=== PATIENT | female | born 1990 | race Caucasian/White ===

== ENCOUNTER 2018-03-24 20:47 | Outpatient (CLI) | payer MEDICAID ==
[2018-03-24 22:08] LABS: ADD MAN DIFF? NO
[2018-03-24 22:10] LABS: WHITE BLOOD COUNT 12.6 10^3/ul (4.8-10.8)
[2018-03-24 22:10] LABS: BASOPHILS % 0.2 % (0.0-2.0); EOSINOPHILS # 0.2 10^3/ul (0.0-0.5); EOSINOPHILS % 1.3 % (0.0-7.0); HEMATOCRIT 34.4 % (37.0-47.0); HEMOGLOBIN 11.8 g/dl (12.0-16.0); LYMPHOCYTES # 2.8 10^3/ul (0.8-2.9); LYMPHOCYTES % 22.2 % (15.0-51.0); MEAN CORPUSCULAR HGB CONC 34.3 g/dl (32.0-37.0); MEAN CORPUSCULAR VOLUME 87.5 fl (82.0-101.0); MEAN PLATELET VOLUME 10.9 fl (7.4-10.4); MONOCYTE # 0.7 10^3/ul (0.3-0.9); MONOCYTES % 5.8 % (0.0-11.0); NEUTROPHIL # 8.7 10^3/ul (1.6-7.5); NEUTROPHILS % 68.9 % (39.0-77.0); PLATELET COUNT 268 10^3/UL (140-415); RED BLOOD COUNT 3.93 10^6/ul (4.20-5.40); RED CELL DISTRIBUTION WIDTH 12.4 % (11.5-14.5)
[2018-03-24 22:23] LABS: ADD UMIC NO; UR ASCORBIC ACID NEGATIVE (NEGATIVE); UR BILIRUBIN (Dip) NEGATIVE (NEGATIVE); UR BLOOD (Dip) NEGATIVE (NEGATIVE); UR CLARITY CLEAR (CLEAR); UR COLOR YELLOW (YELLOW); UR GLUCOSE (Dip) 3+ mg/dL (NEGATIVE); UR KETONES (Dip) 1+ mg/dL (NEGATIVE); UR LEUKOCYTE ESTERASE (Dip) NEGATIVE Leu/ul (NEGATIVE); UR NITRITE (Dip) NEGATIVE (NEGATIVE); UR SPECIFIC GRAVITY (Dip) 1.033 (1.003-1.030); UR TOTAL PROTEIN (Dip) NEGATIVE (NEGATIVE); UR UROBILINOGEN (Dip) NEGATIVE (NEGATIVE)
[2018-03-24 22:28] LABS: ALANINE AMINOTRANSFERASE 18 IU/L (13-69); ALBUMIN 3.2 g/dl (3.3-4.9); ALKALINE PHOSPHATASE 75 IU/L (42-121); ANION GAP 11 (8-16); ASPARTATE AMINO TRANSFERASE 12 IU/L (15-46); BILIRUBIN,INDIRECT 0.2 mg/dl (0-1.1); BILIRUBIN,TOTAL 0.2 mg/dl (0.2-1.3); BLOOD UREA NITROGEN 8 mg/dl (7-20); CALCIUM 9.2 mg/dl (8.4-10.2); CARBON DIOXIDE 22 mmol/L (21-31); CHLORIDE 101 mmol/L (97-110); CREATININE 0.45 mg/dl (0.44-1.00); GLUCOSE 315 mg/dl (70-220); POTASSIUM 4.1 mmol/L (3.5-5.1); SODIUM 130 mmol/L (135-144); TOTAL PROTEIN 6.4 g/dl (6.1-8.1)
[2018-03-25] MEDS ORDERED: INSULIN LISPRO 100 UNIT/ML VIAL SC (01:30)
[2018-03-25] MEDS: INSULIN ASPART [NOVOLOG] 3 ML PEN SC (03:00)
[2018-03-25] MEDS: ONDANSETRON 4 MG TAB PO (03:22)
== END 2018-03-25 04:35 | disposition left against medical advice (07) ==
LOC: OBT 20:47 → L-D 20:49
DX: O24.414 Gestational diabetes mellitus in pregnancy, insulin controlled (principal); O26.892 Other specified pregnancy related conditions, second trimester; R10.9 Unspecified abdominal pain; R19.7 Diarrhea, unspecified; O21.9 Vomiting of pregnancy, unspecified; Z3A.21 21 weeks gestation of pregnancy
CPT/HCPCS: 36415; 76815; 76817; 80053; 81003; 82962; 85025; 87086; 96372

== ENCOUNTER 2018-05-06 15:33 | Outpatient (CLI) | payer MEDICAID ==
[2018-05-06 17:13] LABS: ALANINE AMINOTRANSFERASE 20 IU/L (13-69); ALBUMIN 3.1 g/dl (3.3-4.9); ALBUMIN/GLOBULIN RATIO 0.88; ALKALINE PHOSPHATASE 88 IU/L (42-121); ANION GAP 12 (8-16); ASPARTATE AMINO TRANSFERASE 13 IU/L (15-46); BILIRUBIN,INDIRECT 0.2 mg/dl (0-1.1); BILIRUBIN,TOTAL 0.2 mg/dl (0.2-1.3); BLOOD UREA NITROGEN 7 mg/dl (7-20); CALCIUM 8.9 mg/dl (8.4-10.2); CARBON DIOXIDE 22 mmol/L (21-31); CHLORIDE 105 mmol/L (97-110); CREATININE 0.34 mg/dl (0.44-1.00); GLUCOSE 187 mg/dl (70-220); POTASSIUM 3.6 mmol/L (3.5-5.1); SODIUM 135 mmol/L (135-144); TOTAL PROTEIN 6.6 g/dl (6.1-8.1)
[2018-05-06 19:31] LABS: ADD UMIC NO; UR AMORPHOUS CRYSTAL MODERATE /HPF (NONE SEEN); UR ASCORBIC ACID NEGATIVE (NEGATIVE); UR BACTERIA FEW /HPF (NONE SEEN); UR BILIRUBIN (Dip) NEGATIVE (NEGATIVE); UR BLOOD (Dip) NEGATIVE (NEGATIVE); UR CLARITY SLIGHTLY CLOUDY (CLEAR); UR COLOR YELLOW (YELLOW); UR GLUCOSE (Dip) 3+ mg/dL (NEGATIVE); UR KETONES (Dip) TRACE mg/dL (NEGATIVE); UR LEUKOCYTE ESTERASE (Dip) NEGATIVE Leu/ul (NEGATIVE); UR MUCUS FEW /HPF (NONE SEEN); UR NITRITE (Dip) NEGATIVE (NEGATIVE); UR RBC 0 /HPF (0-5); UR SPECIFIC GRAVITY (Dip) 1.017 (1.003-1.030); UR SQUAMOUS EPITHELIAL CELL FEW /HPF (FEW); UR TOTAL PROTEIN (Dip) NEGATIVE (NEGATIVE); UR UROBILINOGEN (Dip) NEGATIVE (NEGATIVE); UR WBC 2 /HPF (0-5)
== END 2018-05-06 21:00 | disposition home or self-care (01) ==
LOC: OBT 15:33 → L-D 15:34 → OBT 21:00
DX: O26.892 Other specified pregnancy related conditions, second trimester (principal); O24.414 Gestational diabetes mellitus in pregnancy, insulin controlled; Z3A.26 26 weeks gestation of pregnancy
CPT/HCPCS: 76705; 80053; 81001; 81003

== ENCOUNTER 2018-06-15 07:37 | Outpatient (CLI) | payer MEDICAID ==
[2018-06-15] MEDS: LACTATED RINGER'S 1,000 ML IV (08:59)
[2018-06-15 09:00] LABS: ADD MAN DIFF? NO
[2018-06-15 09:04] LABS: BASOPHILS % 0.4 % (0.0-2.0); EOSINOPHILS # 0.1 10^3/ul (0.0-0.5); EOSINOPHILS % 1.2 % (0.0-7.0); HEMATOCRIT 35.2 % (37.0-47.0); HEMOGLOBIN 11.9 g/dl (12.0-16.0); LYMPHOCYTES # 2.9 10^3/ul (0.8-2.9); MEAN CORPUSCULAR HEMOGLOBIN 28.1 pg (29.0-33.0); MEAN CORPUSCULAR HGB CONC 33.8 g/dl (32.0-37.0); MEAN PLATELET VOLUME 12.4 fl (7.4-10.4); MONOCYTE # 0.8 10^3/ul (0.3-0.9); MONOCYTES % 7.7 % (0.0-11.0); NEUTROPHIL # 6.9 10^3/ul (1.6-7.5); NEUTROPHILS % 62.8 % (39.0-77.0); PLATELET COUNT 246 10^3/UL (140-415); RED BLOOD COUNT 4.24 10^6/ul (4.20-5.40); RED CELL DISTRIBUTION WIDTH 12.6 % (11.5-14.5)
[2018-06-15 09:04] LABS: WHITE BLOOD COUNT 10.9 10^3/ul (4.8-10.8)
[2018-06-15 09:06] LABS: ADD UMIC NO; UR ASCORBIC ACID NEGATIVE (NEGATIVE); UR BILIRUBIN (Dip) NEGATIVE (NEGATIVE); UR BLOOD (Dip) NEGATIVE (NEGATIVE); UR CLARITY CLEAR (CLEAR); UR COLOR YELLOW (YELLOW); UR GLUCOSE (Dip) NEGATIVE (NEGATIVE); UR KETONES (Dip) NEGATIVE (NEGATIVE); UR LEUKOCYTE ESTERASE (Dip) NEGATIVE Leu/ul (NEGATIVE); UR NITRITE (Dip) NEGATIVE (NEGATIVE); UR SPECIFIC GRAVITY (Dip) 1.014 (1.003-1.030); UR TOTAL PROTEIN (Dip) NEGATIVE (NEGATIVE); UR UROBILINOGEN (Dip) NEGATIVE (NEGATIVE)
[2018-06-15 09:35] LABS: ALANINE AMINOTRANSFERASE 10 IU/L (13-69); ALBUMIN 2.9 g/dl (3.3-4.9); ALKALINE PHOSPHATASE 138 IU/L (42-121); ANION GAP 10 (5-13); ASPARTATE AMINO TRANSFERASE 16 IU/L (15-46); BILIRUBIN,INDIRECT 0.1 mg/dl (0-1.1); BILIRUBIN,TOTAL 0.1 mg/dl (0.2-1.3); BLOOD UREA NITROGEN 7 mg/dl (7-20); CALCIUM 9.2 mg/dl (8.4-10.2); CARBON DIOXIDE 20 mmol/L (21-31); CHLORIDE 108 mmol/L (97-110); Estimated GFR > 60 mL/min (>60); GLUCOSE 130 mg/dl (70-220); POTASSIUM 4.1 mmol/L (3.5-5.1); SODIUM 138 mmol/L (135-144); TOTAL PROTEIN 6.5 g/dl (6.1-8.1)
== END 2018-06-15 10:17 | disposition home or self-care (01) ==
LOC: OBT 07:37 → L-D 07:38 → OBT 10:17
DX: O62.9 Abnormality of forces of labor, unspecified (principal); Z3A.32 32 weeks gestation of pregnancy
CPT/HCPCS: 36415; 76817; 76818; 80053; 81003; 85025; 96360; 96361

== ENCOUNTER 2018-06-28 21:58 | Inpatient (IN) | payer MEDICAID ==
[2018-06-28] MEDS: LACTATED RINGER'S 1,000 ML IV (23:28)
[2018-06-28] MEDS: ONDANSETRON 4 MG INJ IV (23:32)
[2018-06-28] MEDS: FAMOTIDINE 20 MG INJ IV (23:32)
[2018-06-28 23:33] LABS: ADD MAN DIFF? NO
[2018-06-28 23:37] LABS: WHITE BLOOD COUNT 10.6 10^3/ul (4.8-10.8)
[2018-06-28 23:37] LABS: BASOPHILS % 0.4 % (0.0-2.0); EOSINOPHILS # 0.3 10^3/ul (0.0-0.5); EOSINOPHILS % 2.3 % (0.0-7.0); HEMOGLOBIN 11.6 g/dl (12.0-16.0); LYMPHOCYTES # 2.7 10^3/ul (0.8-2.9); MEAN CORPUSCULAR HEMOGLOBIN 28.2 pg (29.0-33.0); MEAN CORPUSCULAR HGB CONC 34.1 g/dl (32.0-37.0); MEAN CORPUSCULAR VOLUME 82.7 fl (82.0-101.0); MONOCYTE # 0.9 10^3/ul (0.3-0.9); MONOCYTES % 8.6 % (0.0-11.0); NEUTROPHIL # 6.7 10^3/ul (1.6-7.5); NEUTROPHILS % 62.8 % (39.0-77.0); PLATELET COUNT 246 10^3/UL (140-415); RED BLOOD COUNT 4.11 10^6/ul (4.20-5.40); RED CELL DISTRIBUTION WIDTH 12.5 % (11.5-14.5)
[2018-06-28] MEDS: TERBUTALINE 1 MG/ML INJ SC (23:38)
[2018-06-28 23:54] LABS: INR 0.98; PROTIME 13.1 Sec (11.9-14.9)
[2018-06-28 23:55] LABS: PARTIAL THROMBOPLASTIN TIME 29.2 Sec (23.0-35.0)
[2018-06-29] MEDS: BETAMET NA PHOS/AC(6 MG/ML) 2 ML INJ SYG IM (00:03)
[2018-06-29 00:08] LABS: GLUCOSE 216 mg/dl (70-220)
[2018-06-29 00:20] LABS: ADD UMIC YES; UR ASCORBIC ACID NEGATIVE (NEGATIVE); UR BILIRUBIN (Dip) NEGATIVE (NEGATIVE); UR BLOOD (Dip) NEGATIVE (NEGATIVE); UR CLARITY CLOUDY (CLEAR); UR COLOR YELLOW (YELLOW); UR GLUCOSE (Dip) 3+ mg/dL (NEGATIVE); UR KETONES (Dip) TRACE mg/dL (NEGATIVE); UR LEUKOCYTE ESTERASE (Dip) NEGATIVE Leu/ul (NEGATIVE); UR NITRITE (Dip) NEGATIVE (NEGATIVE); UR RBC 1 /HPF (0-5); UR SPECIFIC GRAVITY (Dip) 1.022 (1.003-1.030); UR SQUAMOUS EPITHELIAL CELL FEW /HPF (FEW); UR TOTAL PROTEIN (Dip) NEGATIVE (NEGATIVE); UR UROBILINOGEN (Dip) NEGATIVE (NEGATIVE); UR WBC 7 /HPF (0-5)
[2018-06-29] MEDS: LACTATED RINGER'S 1,000 ML IV ×3 (02:33→22:31)
[2018-06-29] MEDS: TERBUTALINE 1 MG/ML INJ SC (05:31)
[2018-06-29] MEDS ORDERED: MAGNESIUM SULFATE 4 GM/100 ML 100 ML (08:03)
[2018-06-29] MEDS: MAGNESIUM SULFATE 4 GM/100 ML 100 ML IVPB (08:28)
[2018-06-29] MEDS: MAGNESIUM SULFATE 20 GM/500 ML 500 ML IV ×2 (08:59→18:39)
[2018-06-29] MEDS ORDERED: GLUCAGON 1 MG INJ IM (09:30)
[2018-06-29] MEDS ORDERED: DEXTROSE 50% 50 ML SYRINGE IV ×2 (09:30)
[2018-06-29] MEDS ORDERED: GLUCOSE GEL 15 GRAM TUBE PO ×2 (09:30)
[2018-06-29] MEDS ORDERED: GLUCOSE GEL 15 GRAM TUBE BUCCAL (09:30)
[2018-06-29] MEDS: ONDANSETRON 4 MG INJ IV ×2 (10:14→20:34)
[2018-06-29] MEDS: INSULIN REGULAR, HUMAN 100 UNIT/1 ML 3ML VIAL SC ×2 (11:01→18:29)
[2018-06-29] MEDS: NPH, HUMAN INSULIN ISOPHANE 3ML VIAL SC ×2 (11:02→18:28)
[2018-06-29 12:49] LABS: MAGNESIUM 4.3 mg/dl (1.7-2.5)
[2018-06-29 13:27] LABS: HEPATITIS B SURFACE ANTIGEN NEGATIVE (NEGATIVE)
[2018-06-29] MEDS: ACETAMINOPHEN 325 MG TAB PO (17:24)
[2018-06-29] MEDS: AL HYDROX/MG HYDROX/SIMETH 30 ML CUP PO (21:27)
[2018-06-30] MEDS: ACETAMINOPHEN 325 MG TAB PO ×2 (00:28→13:38)
[2018-06-30] MEDS: BETAMET NA PHOS/AC(6 MG/ML) 2 ML INJ SYG IM (00:31)
[2018-06-30 01:26] LABS: MAGNESIUM 5.2 mg/dl (1.7-2.5)
[2018-06-30] MEDS: AL HYDROX/MG HYDROX/SIMETH 30 ML CUP PO ×2 (04:08→08:12)
[2018-06-30] MEDS: MAGNESIUM SULFATE 20 GM/500 ML 500 ML IV (04:11)
[2018-06-30 07:15] LABS: MAGNESIUM 5.3 mg/dl (1.7-2.5)
[2018-06-30] MEDS: NPH, HUMAN INSULIN ISOPHANE 3ML VIAL SC (08:20)
[2018-06-30] MEDS: INSULIN REGULAR, HUMAN 100 UNIT/1 ML 3ML VIAL SC (08:22)
[2018-06-30] MEDS ORDERED: NIFEdipine 10 MG CAP (10:27)
[2018-06-30] MEDS: LACTATED RINGER'S 1,000 ML IV (10:31)
[2018-06-30] MEDS: NIFEdipine 10 MG CAP PO ×2 (10:37→15:32)
[2018-06-30] MEDS: ONDANSETRON 4 MG INJ IV (11:19)
== END 2018-06-30 16:20 | disposition home or self-care (01) | DRG 833 ==
LOC: OBT 21:58 → L-D 21:59 → OBT 22:45 → L-D 22:45
PROVIDERS: Obstetrics & Gynecology
DX: O60.03 Preterm labor without delivery, third trimester (principal); Z3A.34 34 weeks gestation of pregnancy
CPT/HCPCS: 76815; 76817; 76818; 81001; 82947; 82962; 83735; 85025; 85610; 85730; 86900; 86901; 87340

== ENCOUNTER 2018-07-03 14:01 | Outpatient (CLI) | payer MEDICAID ==
[2018-07-03] MEDS: LACTATED RINGER'S 1,000 ML IV ×2 (15:51→16:59)
[2018-07-03] MEDS: METOCLOPRAMIDE 10 MG INJ IV (17:02)
[2018-07-03 17:07] LABS: ADD MAN DIFF? NO
[2018-07-03 17:09] LABS: WHITE BLOOD COUNT 10.4 10^3/ul (4.8-10.8)
[2018-07-03 17:09] LABS: BASOPHILS % 0.2 % (0.0-2.0); EOSINOPHILS # 0.1 10^3/ul (0.0-0.5); EOSINOPHILS % 1.3 % (0.0-7.0); HEMATOCRIT 32.9 % (37.0-47.0); HEMOGLOBIN 11.2 g/dl (12.0-16.0); LYMPHOCYTES % 28.4 % (15.0-51.0); MEAN CORPUSCULAR VOLUME 82.3 fl (82.0-101.0); MEAN PLATELET VOLUME 12.6 fl (7.4-10.4); MONOCYTE # 0.8 10^3/ul (0.3-0.9); MONOCYTES % 7.5 % (0.0-11.0); NEUTROPHIL # 6.4 10^3/ul (1.6-7.5); NEUTROPHILS % 61.3 % (39.0-77.0); PLATELET COUNT 242 10^3/UL (140-415); RED CELL DISTRIBUTION WIDTH 12.6 % (11.5-14.5)
[2018-07-03] MEDS: MEPERIDINE 25 MG INJ IV (17:19)
[2018-07-03 17:23] LABS: ADD UMIC NO; UR ASCORBIC ACID NEGATIVE (NEGATIVE); UR BILIRUBIN (Dip) NEGATIVE (NEGATIVE); UR BLOOD (Dip) NEGATIVE (NEGATIVE); UR CLARITY CLEAR (CLEAR); UR COLOR YELLOW (YELLOW); UR GLUCOSE (Dip) 1+ mg/dL (NEGATIVE); UR KETONES (Dip) NEGATIVE (NEGATIVE); UR LEUKOCYTE ESTERASE (Dip) NEGATIVE Leu/ul (NEGATIVE); UR NITRITE (Dip) NEGATIVE (NEGATIVE); UR SPECIFIC GRAVITY (Dip) 1.024 (1.003-1.030); UR TOTAL PROTEIN (Dip) NEGATIVE (NEGATIVE); UR UROBILINOGEN (Dip) NEGATIVE (NEGATIVE)
[2018-07-03] MEDS: MEPERIDINE 50 MG INJ IM (17:36)
[2018-07-03 17:39] LABS: ALANINE AMINOTRANSFERASE 14 IU/L (13-69); ALBUMIN 3.2 g/dl (3.3-4.9); ALBUMIN/GLOBULIN RATIO 0.96; ALKALINE PHOSPHATASE 128 IU/L (42-121); ANION GAP 6 (5-13); ASPARTATE AMINO TRANSFERASE 17 IU/L (15-46); BILIRUBIN,INDIRECT 0.3 mg/dl (0-1.1); BILIRUBIN,TOTAL 0.3 mg/dl (0.2-1.3); BLOOD UREA NITROGEN 13 mg/dl (7-20); CALCIUM 8.6 mg/dl (8.4-10.2); CARBON DIOXIDE 19 mmol/L (21-31); CHLORIDE 110 mmol/L (97-110); CREATININE 0.35 mg/dl (0.44-1.00); Estimated GFR > 60 mL/min (>60); GLUCOSE 101 mg/dl (70-220); POTASSIUM 4.1 mmol/L (3.5-5.1); SODIUM 135 mmol/L (135-144); TOTAL PROTEIN 6.5 g/dl (6.1-8.1)
[2018-07-03] MEDS: NIFEdipine 10 MG CAP PO (18:48)
== END 2018-07-03 19:00 | disposition home or self-care (01) ==
LOC: OBT 14:01 → L-D 14:01 → OBT 19:00
DX: O62.9 Abnormality of forces of labor, unspecified (principal); O24.414 Gestational diabetes mellitus in pregnancy, insulin controlled; Z3A.34 34 weeks gestation of pregnancy
CPT/HCPCS: 76815; 76818; 80053; 81003; 82962; 85025; 96360; 96361; 96372; 96374; 96375

== ENCOUNTER 2018-07-09 06:15 | Inpatient (IN) | payer MEDICAID ==
[2018-07-09 07:46] LABS: ADD UMIC YES; UR ASCORBIC ACID NEGATIVE (NEGATIVE); UR BACTERIA FEW /HPF (NONE SEEN); UR BILIRUBIN (Dip) NEGATIVE (NEGATIVE); UR BLOOD (Dip) 1+ mg/dL (NEGATIVE); UR CLARITY CLEAR (CLEAR); UR COLOR YELLOW (YELLOW); UR GLUCOSE (Dip) NEGATIVE (NEGATIVE); UR KETONES (Dip) NEGATIVE (NEGATIVE); UR LEUKOCYTE ESTERASE (Dip) NEGATIVE Leu/ul (NEGATIVE); UR MUCUS FEW /HPF (NONE SEEN); UR NITRITE (Dip) NEGATIVE (NEGATIVE); UR RBC 0 /HPF (0-5); UR SPECIFIC GRAVITY (Dip) 1.015 (1.003-1.030); UR SQUAMOUS EPITHELIAL CELL FEW /HPF (FEW); UR TOTAL PROTEIN (Dip) NEGATIVE (NEGATIVE); UR UROBILINOGEN (Dip) NEGATIVE (NEGATIVE); UR WBC 1 /HPF (0-5)
[2018-07-09] MEDS: BUTORPHANOL 2 MG INJ IV (08:24)
[2018-07-09] MEDS: LACTATED RINGER'S 1,000 ML IV ×4 (08:24→22:23)
[2018-07-09] MEDS: MAGNESIUM SULFATE 4 GM/100 ML 100 ML IV (08:26)
[2018-07-09] MEDS ORDERED: BUTORPHANOL 2 MG INJ (08:35)
[2018-07-09] MEDS: MAGNESIUM SULFATE 20 GM/500 ML 500 ML IV (09:10)
[2018-07-09 09:53] LABS: ADD MAN DIFF? NO
[2018-07-09 09:59] LABS: BASOPHILS % 0.3 % (0.0-2.0); EOSINOPHILS # 0.1 10^3/ul (0.0-0.5); HEMATOCRIT 34.5 % (37.0-47.0); HEMOGLOBIN 11.7 g/dl (12.0-16.0); LYMPHOCYTES # 3.8 10^3/ul (0.8-2.9); LYMPHOCYTES % 32.7 % (15.0-51.0); MEAN CORPUSCULAR HEMOGLOBIN 27.5 pg (29.0-33.0); MEAN CORPUSCULAR HGB CONC 33.9 g/dl (32.0-37.0); MEAN PLATELET VOLUME 12.8 fl (7.4-10.4); MONOCYTE # 0.8 10^3/ul (0.3-0.9); MONOCYTES % 6.8 % (0.0-11.0); NEUTROPHIL # 6.7 10^3/ul (1.6-7.5); NEUTROPHILS % 57.9 % (39.0-77.0); PLATELET COUNT 258 10^3/UL (140-415); RED BLOOD COUNT 4.26 10^6/ul (4.20-5.40); RED CELL DISTRIBUTION WIDTH 12.7 % (11.5-14.5)
[2018-07-09 09:59] LABS: WHITE BLOOD COUNT 11.5 10^3/ul (4.8-10.8)
[2018-07-09] MEDS ORDERED: BUTORPHANOL 2 MG INJ IV (10:00)
[2018-07-09 10:19] LABS: INR 0.98; PROTIME 13.1 Sec (11.9-14.9)
[2018-07-09 10:34] LABS: ALANINE AMINOTRANSFERASE 13 IU/L (13-69); ALBUMIN 3.4 g/dl (3.3-4.9); ALBUMIN/GLOBULIN RATIO 1.03; ALKALINE PHOSPHATASE 157 IU/L (42-121); ANION GAP 10 (5-13); ASPARTATE AMINO TRANSFERASE 22 IU/L (15-46); BILIRUBIN,INDIRECT 0.3 mg/dl (0-1.1); BILIRUBIN,TOTAL 0.3 mg/dl (0.2-1.3); BLOOD UREA NITROGEN 11 mg/dl (7-20); CALCIUM 8.9 mg/dl (8.4-10.2); CARBON DIOXIDE 20 mmol/L (21-31); CHLORIDE 106 mmol/L (97-110); CREATININE 0.38 mg/dl (0.44-1.00); Estimated GFR > 60 mL/min (>60); GLUCOSE 125 mg/dl (70-220); POTASSIUM 4.1 mmol/L (3.5-5.1); SODIUM 136 mmol/L (135-144); TOTAL PROTEIN 6.7 g/dl (6.1-8.1)
[2018-07-09] MEDS ORDERED: DEXTROSE 50% 50 ML SYRINGE IV ×2 (11:00)
[2018-07-09] MEDS ORDERED: GLUCOSE GEL 15 GRAM TUBE BUCCAL (11:00)
[2018-07-09] MEDS ORDERED: GLUCOSE GEL 15 GRAM TUBE PO ×2 (11:00)
[2018-07-09] MEDS ORDERED: GLUCAGON 1 MG INJ IM (11:00)
[2018-07-09 12:18] LABS: MAGNESIUM 4.5 mg/dl (1.7-2.5)
[2018-07-09] MEDS: ACCU-CHEK XX ×3 (13:25→21:26)
[2018-07-09 15:08] LABS: RAPID PLASMA REAGIN NONREACTIVE (NR)
[2018-07-09] MEDS ORDERED: METOCLOPRAMIDE 10 MG INJ (18:16)
[2018-07-09] MEDS ORDERED: OXYTOCIN 30 UNITS/LR 500 ML IV ×2 (18:16→22:30)
[2018-07-09] MEDS ORDERED: ONDANSETRON 4 MG INJ (18:16)
[2018-07-09] MEDS ORDERED: morphine SULFATE/PF (10 MG/10 ML) INJ (18:16)
[2018-07-09] MEDS ORDERED: EPHEDrine SULFATE 50 MG/5 ML SYG (18:16)
[2018-07-09] MEDS ORDERED: OXYTOCIN 10 UNIT INJ ×2 (18:17→19:13)
[2018-07-09] MEDS ORDERED: CEFAZOLIN 2 GM/50 ML (PMX) 50 ML IVPB (18:18)
[2018-07-09 18:23] LABS: MAGNESIUM 5.3 mg/dl (1.7-2.5)
[2018-07-09] MEDS: CEFAZOLIN 2 GM/50 ML (PMX) 50 ML IVPB (18:55)
[2018-07-09] MEDS ORDERED: DIPHENHYDRAMINE 50 MG INJ IV (19:00)
[2018-07-09] MEDS ORDERED: EPHEDrine SULFATE 50 MG/5 ML SYG IV ×2 (19:00→20:00)
[2018-07-09] MEDS ORDERED: morphine 2 MG INJ IV ×3 (19:00→20:00)
[2018-07-09] MEDS ORDERED: ONDANSETRON 4 MG INJ IV (19:00)
[2018-07-09] MEDS ORDERED: NALOXONE (0.4 MG/ML) INJ IV ×2 (19:00→20:00)
[2018-07-09] MEDS: morphine SULFATE/PF (10 MG/10 ML) INJ SPINAL (19:00)
[2018-07-09] MEDS ORDERED: KETOROLAC 30 MG INJ IV (19:00)
[2018-07-09] MEDS ORDERED: morphine SULFATE/PF (10 MG/10 ML) INJ SPINAL (20:00)
[2018-07-09] MEDS: KETOROLAC 30 MG INJ IV (21:01)
[2018-07-09] MEDS: OXYTOCIN 30 UNITS/LR 500 ML IV (21:15)
[2018-07-09] MEDS ORDERED: METHYLERGONOVINE 0.2 MG INJ IM (22:30)
[2018-07-09] MEDS ORDERED: NA PHOSPHATE/BIPHOS 133 ML ENEMA PR (22:30)
[2018-07-09] MEDS ORDERED: MISOPROSTOL 200 MCG TAB PR (22:30)
[2018-07-09] MEDS ORDERED: CARBOPROST 250 MCG INJ IM (22:30)
[2018-07-09] MEDS ORDERED: NACL 0.9% 3 ML SYG IV (22:30)
[2018-07-09] MEDS: ONDANSETRON 4 MG INJ IV (23:46)
[2018-07-10] MEDS: morphine 2 MG INJ IV (00:04)
[2018-07-10] MEDS: LANOLIN 7 GM TUBE TOP (00:04)
[2018-07-10] MEDS: OXYTOCIN 30 UNITS/LR 500 ML IV ×6 (01:27→17:00)
[2018-07-10] MEDS: DEXAMETHASONE 4 MG/ML 1 ML INJ IV (03:30)
[2018-07-10] MEDS: DIPHENHYDRAMINE 50 MG INJ IV (03:44)
[2018-07-10 08:07] LABS: ADD MAN DIFF? NO
[2018-07-10 08:19] LABS: WHITE BLOOD COUNT 9.6 10^3/ul (4.8-10.8)
[2018-07-10 08:19] LABS: BASOPHILS % 0.3 % (0.0-2.0); EOSINOPHILS % 0.2 % (0.0-7.0); HEMATOCRIT 27.8 % (37.0-47.0); HEMOGLOBIN 9.4 g/dl (12.0-16.0); LYMPHOCYTES # 2.3 10^3/ul (0.8-2.9); LYMPHOCYTES % 23.9 % (15.0-51.0); MEAN CORPUSCULAR HGB CONC 33.8 g/dl (32.0-37.0); MEAN CORPUSCULAR VOLUME 82.7 fl (82.0-101.0); MEAN PLATELET VOLUME 12.3 fl (7.4-10.4); MONOCYTE # 0.7 10^3/ul (0.3-0.9); MONOCYTES % 6.9 % (0.0-11.0); NEUTROPHIL # 6.6 10^3/ul (1.6-7.5); NEUTROPHILS % 68.2 % (39.0-77.0); PLATELET COUNT 219 10^3/UL (140-415); RED BLOOD COUNT 3.36 10^6/ul (4.20-5.40); RED CELL DISTRIBUTION WIDTH 12.7 % (11.5-14.5)
[2018-07-10] MEDS: KETOROLAC 30 MG INJ IV (14:26)
[2018-07-10] MEDS: HYDROCODONE/APAP (5/325) TAB PO (20:03)
[2018-07-10] MEDS: IBUPROFEN 800 MG TAB PO (22:00)
[2018-07-11] MEDS: OXYTOCIN 30 UNITS/LR 500 ML IV ×8 (00:02→23:35)
[2018-07-11] MEDS: HYDROCODONE/APAP (5/325) TAB PO ×3 (01:59→18:36)
[2018-07-11] MEDS: IBUPROFEN 800 MG TAB PO ×3 (05:23→21:55)
[2018-07-12] MEDS: HYDROCODONE/APAP (5/325) TAB PO ×3 (02:12→18:23)
[2018-07-12] MEDS: OXYTOCIN 30 UNITS/LR 500 ML IV ×4 (05:00→17:00)
[2018-07-12] MEDS: IBUPROFEN 800 MG TAB PO ×2 (05:24→13:33)
[2018-07-12] MEDS: DIPHTH/TET/ACEL PERTUSS (ADULT) 0.5 ML VIAL IM* (09:00)
[2018-07-12] MEDS: MEASLES,MUMPS,RUBELLA VACCINE INJ SC* (09:00)
[2018-07-12] MEDS: metFORMIN 500 MG TAB PO (14:10)
[2018-07-12] MEDS: ACCU-CHEK XX (17:51)
== END 2018-07-12 18:50 | disposition home or self-care (01) | DRG 786 ==
LOC: OBT 06:15 → L-D 06:15 → OBT 08:21 → L-D 07:43 → PP1 21:45
PROC: 10D00Z1 Extraction of Products of Conception, Low, Open Approach (ICD-10-PCS; principal; 2018-07-09)
DX: O60.14X0 Preterm labor third trimester with preterm delivery third trimester, not applicable or unspecified (principal); O24.32 Unspecified pre-existing diabetes mellitus in childbirth; O34.211 Maternal care for low transverse scar from previous cesarean delivery; E11.9 Type 2 diabetes mellitus without complications; Z3A.35 35 weeks gestation of pregnancy; Z37.0 Single live birth
CPT/HCPCS: 76815; 76818; 80053; 81001; 82962; 83735; 85025; 85610; 85730; 86592; 86850; 86900; 86901; 88305; 90715; 99464

== ENCOUNTER 2018-07-26 20:03 | Emergency (ER) | payer MEDICAID ==
[2018-07-26] MEDS: PIPER-TAZO 3.375 GM IV (PMX) 100 ML IVPB (21:04)
[2018-07-26] MEDS: SOD CHLORIDE 0.9% 1,000 ML IV (21:05)
[2018-07-26] MEDS: KETOROLAC 15 MG INJ IV (21:09)
[2018-07-26 21:10] LABS: ADD MAN DIFF? NO
[2018-07-26 21:11] LABS: WHITE BLOOD COUNT 10.5 10^3/ul (4.8-10.8)
[2018-07-26 21:11] LABS: BASOPHILS % 0.4 % (0.0-2.0); EOSINOPHILS # 0.2 10^3/ul (0.0-0.5); EOSINOPHILS % 1.6 % (0.0-7.0); HEMATOCRIT 38.1 % (37.0-47.0); HEMOGLOBIN 12.4 g/dl (12.0-16.0); LYMPHOCYTES # 2.8 10^3/ul (0.8-2.9); LYMPHOCYTES % 26.9 % (15.0-51.0); MEAN CORPUSCULAR HEMOGLOBIN 26.8 pg (29.0-33.0); MEAN CORPUSCULAR HGB CONC 32.5 g/dl (32.0-37.0); MEAN CORPUSCULAR VOLUME 82.5 fl (82.0-101.0); MEAN PLATELET VOLUME 11.1 fl (7.4-10.4); MONOCYTE # 0.7 10^3/ul (0.3-0.9); MONOCYTES % 6.5 % (0.0-11.0); NEUTROPHIL # 6.7 10^3/ul (1.6-7.5); NEUTROPHILS % 64.1 % (39.0-77.0); PLATELET COUNT 400 10^3/UL (140-415); RED BLOOD COUNT 4.62 10^6/ul (4.20-5.40)
[2018-07-26 21:26] LABS: INR 0.93; PARTIAL THROMBOPLASTIN TIME 29.5 Sec (23.0-35.0); PROTIME 12.6 Sec (11.9-14.9)
[2018-07-26 21:31] LABS: ALANINE AMINOTRANSFERASE 15 IU/L (13-69); ALBUMIN 4.2 g/dl (3.3-4.9); ALBUMIN/GLOBULIN RATIO 1.27; ALKALINE PHOSPHATASE 152 IU/L (42-121); ANION GAP 12 (5-13); ASPARTATE AMINO TRANSFERASE 17 IU/L (15-46); BILIRUBIN,INDIRECT 0.4 mg/dl (0-1.1); BILIRUBIN,TOTAL 0.4 mg/dl (0.2-1.3); BLOOD UREA NITROGEN 12 mg/dl (7-20); CALCIUM 9.6 mg/dl (8.4-10.2); CARBON DIOXIDE 28 mmol/L (21-31); CHLORIDE 97 mmol/L (97-110); CREATININE 0.64 mg/dl (0.44-1.00); Estimated GFR > 60 mL/min (>60); GLUCOSE 271 mg/dl (70-220); LIPASE 63 U/L (23-300); POTASSIUM 4.3 mmol/L (3.5-5.1); SODIUM 137 mmol/L (135-144); TOTAL PROTEIN 7.5 g/dl (6.1-8.1)
[2018-07-26] MEDS: CEFTRIAXONE 1 GM/50 ML (PMX) 50 ML IVPB (21:56)
[2018-07-26] MEDS: SOD CHLORIDE 0.9% 100 ML (22:46)
[2018-07-26] MEDS: IOHEXOL 300MG/ML 150 ML BTL (22:47)
[2018-07-26] MEDS: morphine 4 MG/ML VIAL IV (23:11)
[2018-07-26] MEDS: ONDANSETRON 4 MG INJ IV (23:11)
[2018-07-26 23:40] LABS: ADD UMIC YES; UR ASCORBIC ACID NEGATIVE (NEGATIVE); UR BILIRUBIN (Dip) NEGATIVE (NEGATIVE); UR BLOOD (Dip) 2+ mg/dL (NEGATIVE); UR CLARITY CLEAR (CLEAR); UR COLOR STRAW (YELLOW); UR GLUCOSE (Dip) 1+ mg/dL (NEGATIVE); UR KETONES (Dip) NEGATIVE (NEGATIVE); UR LEUKOCYTE ESTERASE (Dip) TRACE Leu/ul (NEGATIVE); UR NITRITE (Dip) NEGATIVE (NEGATIVE); UR RBC 1 /HPF (0-5); UR SPECIFIC GRAVITY (Dip) 1.039 (1.003-1.030); UR TOTAL PROTEIN (Dip) NEGATIVE (NEGATIVE); UR UROBILINOGEN (Dip) NEGATIVE (NEGATIVE); UR WBC 4 /HPF (0-5)
== END 2018-07-27 00:11 | disposition home or self-care (01) ==
LOC: E/R 07-27 00:11
DX: O90.0 Disruption of cesarean delivery wound (principal); O24.13 Pre-existing type 2 diabetes mellitus, in the puerperium; R10.9 Unspecified abdominal pain
CPT/HCPCS: 36415; 74177; 80053; 81001; 83690; 85025; 85610; 85730; 96374; 96375; 99285-25